=== PATIENT | female | born 1995 | race African-American/Black ===

== ENCOUNTER 2020-05-15 13:29 | Emergency (ER) | payer SELFPAY ==
[2020-05-15] MEDS ORDERED: METOCLOPRAMIDE 10 MG/2mL INJ ONE (14:20)
[2020-05-15] MEDS ORDERED: NA CHLORIDE 0.9% 1,000 ML ONE (14:21)
[2020-05-15] MEDS ORDERED: DIPHENHYDRAMINE 50 MG/ML VIAL ONE (14:21)
[2020-05-15 14:44] LABS: Urine Bacteria >50 /HPF (<20); Urine RBC 20-50 /HPF (NONE SEEN)
[2020-05-15 14:45] LABS: Urine Culture Reflex Order REFLEXED
[2020-05-15] MEDS ORDERED: MORPHINE 4 MG/ML SYR ONE (14:45)
[2020-05-15 14:52] LABS: Absolute Lymphocytes (CBC) 1.4 K/uL (0.7-4.9); Basophils % 0.2 % (0-1.3); Hematocrit 42.9 % (36.0-45.0); Lymphocytes % 17.5 % (15.3-44.8); MPV 11.1 fL (7.6-11.3); RBC Red Blood Cell Count 5.23 M/uL (3.86-4.86)
[2020-05-15 15:13] LABS: ALT/SGPT 24 U/L (12-78); AST/SGOT 14 U/L (15-37); Albumin 4.1 g/dL (3.4-5.0); Alkaline Phosphatase 59 U/L (45-117); BUN Blood Urea Nitrogen 15 mg/dL (7-18); Bicarbonate 27 mmol/L (21-32); Bilirubin Direct < 0.1 mg/dL (0-0.2); Bilirubin Total 0.2 mg/dL (0.2-1.0); Glucose Level 100 mg/dL (74-106); Lipase 69 U/L (73-393); Potassium 3.8 mmol/L (3.5-5.1); Protein, Total 8.4 g/dL (6.4-8.2); Sodium Level 139 mmol/L (136-145)
[2020-05-15 15:20] LABS: Urine Blood 3+ (NEG); Urine Glucose NEGATIVE (NEG); Urine Protein 1+ (NEG); Urine Specific Gravity 1.025 (1.005-1.030)
--- NOTE | 2020-05-15 16:13 | RAD REPORT ---
EXAM DESCRIPTION: CT - Abdomen Pelvis W Contrast - 05/15/2020 3:47 pm CLINICAL HISTORY: lower abdominal pain COMPARISON: No comparisons TECHNIQUE: Biphasic, helical CT imaging of the abdomen and pelvis was performed following 100 ml non -ionic IV contrast. No oral contrast administered. All CT scans are performed using dose optimization technique as appropriate and may include automated exposure control or mA/KV adjustment according to patient size. FINDINGS: No suspicious findings in the lung bases. The liver, spleen, and pancreas show no suspicious findings. Gallbladder and biliary tree are also wi thout suspicious finding. Symmetric renal function is seen with no hydronephrosis or suspicious renal mass. Fullness of each ur eter is suspect baseline. No pyelonephritis or acute parenchymal process. No bladder abnormalities. N o adrenal abnormalities. Uterus and ovaries show no suspicious findings. No gastric dilatation or wall thickening. Small bowel loops are not dilated. Moderate stool volume pr esent cecum. Appendix is upper normal in size but shows no wall thickening or adjacent inflammatory s tranding. Appendicitis is not suspected. Portions of the sigmoid, descending and transverse colon jackson w prominence the stallings. No surrounding inflammatory stranding. No free air, free fluid or inflammator y stranding. No hernia, mass or bulky lymphadenopathy. No suspicious bony findings. IMPRESSION: No obstruction, appendicitis or other emergent CT abdomen and pelvis finding. Portions of the colon show wall thickening that is probably the affects of peristalsis and absence of intraluminal content. Low-level or mild colitis can have a similar appearance.
--- NOTE | 2020-05-15 16:24 | EDPHYS ---
Physician Documentation [facility] Name: Janny Alejo Age: 25 yrs Sex: Female : 1995 Arrival Date: 05/15/2020 Time: 13:33 Bed 5 Private MD: ED Physician Eduardo Woods HPI: 05/15 13:46 This 25 yrs old Black Female presents to ER via Ambulatory with complaints of Abdominal jmm Pain, Diarrhea, Nausea. 13:46 The patient presents with abdominal pain. Onset: The symptoms/episode began/occurred jmm gradually, 2 day(s) ago. The symptoms do not radiate. Associated signs and symptoms: Pertinent positives: diarrhea, dysuria, nausea. The symptoms are described as achy. This is a 25 year old female with no chronic medical conditions that presents to the ED with complaints fo generalized abdominal pain, diarrhea, dysuria beginning 2 days ago. Denies recent travel, denies recent abx, denies infectious exposure. . Historical: - Allergies: 13:42 No Known Allergies; ll1 - PMHx: 13:42 None; ll1 - PSHx: 13:42 None; ll1 - Immunization history:: Flu vaccine is not up to date. - Social history:: Smoking status: Reported history of juuling and/or vaping. ROS: 13:46 Cardiovascular: Negative for chest pain, palpitations, and edema, Respiratory: Negative jmm for shortness of breath, cough, wheezing, and pleuritic chest pain. 13:46 Constitutional: Positive for body aches, chills, fatigue. 13:46 Abdomen/GI: Positive for abdominal pain, diarrhea. 13:46 All other systems are negative. Exam: 13:46 Constitutional: This is a well developed, well nourished patient who is awake, alert, jmm and in no acute distress. Head/Face: atraumatic. Eyes: EOMI, no conjunctival erythema appreciated ENT: Moist Mucus Membranes Neck: Trachea midline, Supple Chest/axilla: Normal chest wall appearance and motion. Cardiovascular: Regular rate and rhythm. No edema appreciated Respiratory: Normal respirations, no respiratory distress appreciated 13:46 Back: Normal ROM Skin: General appearance color normal MS/ Extremity: Moves all extremities, no obvious deformities appreciated, no edema noted to the lower extremities Neuro: Awake and alert, normal gait Psych: Behavior is normal, Mood is normal, Patient is cooperative and pleasant 13:46 Abdomen/GI: Inspection: abdomen appears normal, Bowel sounds: normal, Palpation: soft, mild abdominal tenderness, in all quadrants. Vital Signs: 13:40 BP 156 / 99; Pulse 73; Resp 18; Temp 98.4; Pulse Ox 100% ; Weight 99.79 kg; Height 5 ll1 ft. 11 in. (180.34 cm); Pain 8/10; 14:55 BP 131 / 81; Pulse 70; Resp 17; Pulse Ox 100% ; jl7 16:30 BP 128 / 80; Pulse 71; Resp 15; Pulse Ox 100% ; jl7 13:40 Body Mass Index 30.68 (99.79 kg, 180.34 cm) ll1 MDM: 13:41 Patient medically screened. [facility] 16:21 Data reviewed: vital signs, nurses notes. Counseling: I had a detailed discussion with guillermo the patient and/or guardian regarding: the historical points, exam findings, and any diagnostic results supporting the discharge/admit diagnosis, lab results, radiology results, the need for outpatient follow up, to return to the emergency department if symptoms worsen or persist or if there are any questions or concerns that arise at home. ED course: Patient is alert and non toxic in appearance in the ED. patient advised to follow up with pcp and otherwise given strict return precautions. patient understood and agrees with the plan of care. . 05/15 13:45 Order name: Basic Metabolic Panel; Complete Time: 15:16 [facility] 05/15 13:45 Order name: CBC with Diff; Complete Time: 15:07 [facility] 05/15 13:45 Order name: Hepatic Function; Complete Time: 15:16 [facility] 05/15 13:45 Order name: Lipase; Complete Time: 15:16 [facility] 05/15 14:25 Order name: Urine Microscopic Only; Complete Time: 14:45 05/15 15:01 Order name: Urine Dipstick--Ancillary (enter results); Complete Time: 15:25 05/15 15:01 Order name: Urine --Ancillary (enter results); Complete Time: 15:25 05/15 15:24 Order name: CT Abd/Pelvis - IV Contrast Only; Complete Time: 16:21 [facility] 05/15 16:11 Order name: Urine Microscopic Only: Repeat; Complete Time: 16:38 05/15 16:14 Order name: Urine Dipstick--Ancillary (enter results): repeat; Complete Time: 16:41 eb 05/15 13:45 Order name: Urine Dipstick-Ancillary (obtain specimen); Complete Time: 14:39 [facility] 05/15 13:45 Order name: Urine Test (obtain specimen); Complete Time: 14:39 [facility] 05/15 13:45 Order name: IV Saline Lock; Complete Time: 14:39 [facility] 05/15 13:45 Order name: Labs collected and sent; Complete Time: 14:39 [facility] Administered Medications: 14:15 Drug: NS 0.9% 1000 ml Route: IV; Rate: 1 bolus; Site: right antecubital; [facility] 15:20 Follow up: Response: No adverse reaction; IV Status: Completed infusion; IV Intake: jl7 1000ml 14:15 Drug: diphenhydrAMINE 12.5 mg Route: IVP; Site: right antecubital; jl7 15:00 Follow up: Response: No adverse reaction [facility] 14:17 Drug: Reglan 10 mg Route: IVP; Site: right antecubital; jl7 15:00 Follow up: Response: No adverse reaction; Nausea is decreased jl 14:35 Drug: morphine 4 mg Route: IVP; Site: right antecubital; jl7 15:00 Follow up: Response: No adverse reaction; Pain is decreased jl7 Disposition: 17:59 Co-signature as Attending Physician, Eduardo Woods MD. rn Disposition: 05/15/20 16:23 Discharged to Home. Impression: Colitis, Urinary tract infection, site not specified. - Condition is Stable. - Discharge Instructions: Urinary Tract Infection, Adult, Colitis. - Prescriptions for Bentyl 20 mg Oral Tablet - take 2 tablet by ORAL route every 6 hours As needed; 40 tablet. Flagyl 500 mg Oral Tablet - take 1 tablet by ORAL route every 6 hours for 10 days; 40 tablet. Reglan 10 mg Oral Tablet - take 1 tablet by ORAL route every 6 hours take 30 minutes before meals and at bedtime; 20 tablet. Cipro 500 mg Oral Tablet - take 1 tablet by ORAL route every 12 hours for 10 days; 20 tablet. - Medication Reconciliation Form, Thank You Letter, Antibiotic Education, Prescription Opioid Use, Work release form form. - Follow up: Private Physician; When: As needed; Reason: Recheck today's complaints, Continuance of care, Re-evaluation by your physician. Signatures: Dispatcher [employer] EDMS Alec Ladd PA PA jmm Nieto, Roman, MD MD rn Leal, Jahala, RN RN jl7 Nadia Ventura RN RN ll1 Corrections: (The following items were deleted from the chart) 16:39 14:46 Urine Culture ordered. EDCO EDCO 17:30 16:23 05/15/2020 16:23 Discharged to Home. Impression: Colitis; Urinary tract jl7 infection, site not specified. Condition is Stable. Forms are Medication Reconciliation Form, Thank You Letter, Antibiotic Education, Prescription Opioid Use. Follow up: Private Physician; When: As needed; Reason: Recheck today's complaints, Continuance of care, Re-evaluation by your physician. guillermo
--- NOTE | 2020-05-15 16:24 | ER ---
Nurse's Notes [facility] Name: Janny Alejo Age: 25 yrs Sex: Female : 1995 Arrival Date: 05/15/2020 Time: 13:33 Bed 5 Private MD: Diagnosis: Colitis;Urinary tract infection, site not specified Presentation: 05/15 13:40 Chief complaint: Patient states: Abdominal cramping with nausea and diarrhea since ll1 Monday. Believes she at [facility] that day. Coronavirus screen: Client denies travel out of the [place] in the last 14 days. diarrhea, nausea, Client presents with at least one sign or symptom that may indicate coronavirus-19. Standard/surgical mask placed on the client. Ebola Screen: Patient denies travel to an Ebola-affected area in the 21 days before illness onset. Initial Sepsis Screen: Does the patient meet any 2 criteria? No. Patient's initial sepsis screen is negative. Does the patient have a suspected source of infection? Yes: Acute abdominal pain. Risk Assessment: Do you want to hurt yourself or someone else? Patient reports no desire to harm self or others. Onset of symptoms was May 13, 2020. 13:40 Method Of Arrival: Ambulatory ll1 13:40 Acuity: CHLOÉ 3 ll1 Historical: - Allergies: 13:42 No Known Allergies; ll1 - PMHx: 13:42 None; ll1 - PSHx: 13:42 None; ll1 - Immunization history:: Flu vaccine is not up to date. - Social history:: Smoking status: Reported history of juuling and/or vaping. Screenin:10 Abuse screen: Denies threats or abuse. Denies injuries from another. Nutritional jl7 screening: No deficits noted. Tuberculosis screening: No symptoms or risk factors identified. Fall Risk IV access (20 points). Total Levin Fall Scale indicates No Risk (0-24 pts). Assessment: 14:10 General: Appears in no apparent distress. uncomfortable, Behavior is calm, cooperative, jl7 appropriate for age. Pain: Complains of pain in suprapubic area, right lower quadrant and left lower quadrant Pain currently is 8 out of 10 on a pain scale. at worst was 10 out of 10 on a pain scale. Quality of pain is described as crampy, Pain began 2-3 days ago. Is continuous. Neuro: Level of Consciousness is awake, alert, obeys commands, Oriented to person, place, time, situation. Cardiovascular: Patient's skin is warm and dry. Respiratory: Airway is patent Respiratory effort is even, unlabored, Respiratory pattern is regular, symmetrical. GI: Reports cramping, diarrhea, nausea. : Urine is cloudy, Denies burning with urination, pain with urination. Derm: Skin is pink, warm \T\ dry. 14:35 Reassessment: Pt reports severe lower abdominal pain, appears diaphoretic and jl7 requesting pain medications, ERP notified, see MAR for orders. 15:30 Reassessment: Patient appears in no apparent distress at this time. Patient is alert, jl7 oriented x 3, equal unlabored respirations, skin warm/dry/pink. Patient states feeling better. Patient states symptoms have improved. 16:30 Reassessment: Patient appears in no apparent distress at this time. No changes from [facility] previously documented assessment. Patient and/or family updated on plan of care and expected duration. Pain level reassessed. Patient is alert, oriented x 3, equal unlabored respirations, skin warm/dry/pink. Vital Signs: 13:40 BP 156 / 99; Pulse 73; Resp 18; Temp 98.4; Pulse Ox 100% ; Weight 99.79 kg; Height 5 ll1 ft. 11 in. (180.34 cm); Pain 8/10; 14:55 BP 131 / 81; Pulse 70; Resp 17; Pulse Ox 100% ; jl7 16:30 BP 128 / 80; Pulse 71; Resp 15; Pulse Ox 100% ; jl7 13:40 Body Mass Index 30.68 (99.79 kg, 180.34 cm) ll1 ED Course: 13:33 Patient arrived in ED. mr 13:34 Alec Ladd PA is PHCP. jmm 13:34 Eduardo Woods MD is Attending Physician. [facility] 13:38 Izabela Evans RN is Primary Nurse. 7 13:41 Triage completed. ll1 13:41 Arm band placed on Patient placed. ll1 14:10 Patient has correct armband on for positive identification. Bed in low position. Call jl light in reach. Side rails up X 1. Pulse ox on. NIBP on. Warm blanket given. 14:22 Initial lab(s) drawn, by me, sent to lab. Urine collected: clean catch specimen, jl7 cloudy. Inserted saline lock: 20 gauge in right antecubital area, using aseptic technique. Blood collected. 15:47 CT Abd/Pelvis - IV Contrast Only In Process Unspecified. EDMS 17:28 No provider procedures requiring assistance completed. IV discontinued, intact, jl7 bleeding controlled, No redness/swelling at site. Pressure dressing applied. Administered Medications: 14:15 Drug: NS 0.9% 1000 ml Route: IV; Rate: 1 bolus; Site: right antecubital; jl7 15:20 Follow up: Response: No adverse reaction; IV Status: Completed infusion; IV Intake: jl7 1000ml 14:15 Drug: diphenhydrAMINE 12.5 mg Route: IVP; Site: right antecubital; jl7 15:00 Follow up: Response: No adverse reaction jl7 14:17 Drug: Reglan 10 mg Route: IVP; Site: right antecubital; jl7 15:00 Follow up: Response: No adverse reaction; Nausea is decreased jl7 14:35 Drug: morphine 4 mg Route: IVP; Site: right antecubital; jl7 15:00 Follow up: Response: No adverse reaction; Pain is decreased jl7 Intake: 15:20 IV: 1000ml; Total: 1000ml. jl7 Outcome: 16:23 Discharge ordered by . [facility] 17:28 Discharged to home ambulatory. jl7 17:28 Condition: stable 17:28 Discharge instructions given to patient, Instructed on discharge instructions, follow up and referral plans. medication usage, Demonstrated understanding of instructions, follow-up care, medications, Prescriptions given X 4. 17:30 Patient left the ED. jl7 Signatures: Dispatcher [employer] EDMS Alec Ladd PA PA jmm Rivera, Mary mr Izabela Evans, RN RN jl7 Nadia Ventura RN RN ll1
[2020-05-15 16:38] LABS: Urine Bacteria <20 /HPF (<20); Urine Culture Reflex Order NOT NEEDED; Urine RBC NONE SEEN /HPF (NONE SEEN)
[2020-05-15 16:39] LABS: Urine Blood NEGATIVE (NEG); Urine Glucose NEGATIVE (NEG); Urine Protein NEGATIVE (NEG); Urine Specific Gravity 1.005 (1.005-1.030); Urine pH 5.5 (5.0-7.0)
[2020-05-16 03:46] VITALS: TEMP 98.4; O2SAT 100
[2020-05-16 03:49] VITALS: BP 128/80
== END 2020-05-15 17:30 | disposition home or self-care (01) ==
LOC: ER 13:29
DX: K52.9 Noninfective gastroenteritis and colitis, unspecified (principal); N39.0 Urinary tract infection, site not specified; Z87.891 Personal history of nicotine dependence
CPT/HCPCS: 36415; 74177; 80048; 80076; 81003; 81015; 81025; 83690; 85025; 96361; 96374; 96375; 99284; J1200; J2765; J7030; Q9967